=== PATIENT | female | born 1980 | race Caucasian/White ===

== ENCOUNTER 2017-05-16 20:37 | Inpatient (IN) | payer OTHER ==
--- NOTE | 2017-05-16 20:57 | EDPHY ---
H & P Time Seen by Provider: 05/16/17 20:54 HPI/ROS: CHIEF COMPLAINT: bleeding HISTORY OF PRESENT ILLNESS: The patient is a 36-year-old female who was brought in by EMS from home after delivering her baby at home about an hour and half ago with a epic manager. The delivery went well and the baby was healthy. The state that the placenta was delivered intact. Patient however kept bleeding. Her blood pressure dropped. She was given oxytocin and Cytotec by nurse epic manager. EMS was called. The initial pressure was 110 systolic. IV was started and a L of fluids given. On arrival here in the emergency department the patient is pale. Blood pressure 77 systolic quickly dropped to 60 systolic. The baby was in EMS arms, pink, stable vital signs. REVIEW OF SYSTEMS: Unable to obtain secondary to condition EXAM: GENERAL: Pale, severe distress HEAD: Atraumatic, normocephalic. EYES: Pupils equal round and reactive to light, extraocular movements intact, sclera anicteric, conjunctiva are normal. ENT: TMs normal, nares patent, oropharynx clear without exudates. Moist mucous membranes. NECK: Normal range of motion, supple without lymphadenopathy or JVD. LUNGS: Breath sounds clear to auscultation bilaterally and equal. No wheezes rales or rhonchi. HEART: Regular rate and rhythm without murmurs, rubs or gallops. ABDOMEN: Firm contracted uterus, blood in clots in labia BACK: No CVA tenderness, no spinal tenderness, step-offs or deformities EXTREMITIES: Normal range of motion, no pitting or edema. No clubbing or cyanosis. NEUROLOGICAL: Cranial nerves II through XII grossly intact. Normal speech, normal gait. 5/5 strength, normal movement in all extremities, normal sensation PSYCH: Normal mood, normal affect. SKIN: Warm, dry, normal turgor, no visible rashes or lesions. Source: Patient, EMS Exam Limitations: No limitations - Medical/Surgical History Hx Asthma: No Hx Chronic Respiratory Disease: No Hx Diabetes: No Hx Cardiac Disease: No Hx Renal Disease: No Hx Cirrhosis: No Other PMH: CHRONIC ANEMIA ON FERROUS SEQUELS - Family History Significant Family History: No pertinent family hx - Social History Smoking Status: Never smoked Alcohol Use: Sober Drug Use: None Constitutional: Initial Vital Signs Temperature (C) 36 C 05/16/17 21:09 Heart Rate 88 05/16/17 21:09 Respiratory Rate 14 05/16/17 21:09 Blood Pressure 86/50 L 05/16/17 21:09 O2 Sat (%) 98 05/16/17 21:09 Allergies/Adverse Reactions: No Known Allergies Allergy (Unverified 04/15/12 20:29) Home Medications: Medication Instructions Recorded L.acidoph/L.rhamn/B.bif/B.long 1 each PO 04/16/12 [Probiotic Acidophilus Biobeads] Multivitamins [Multivitamin (*)] 1 each PO DAILY 04/16/12 Medical Decision Making ED Course/Re-evaluation: IV fluids were given through pressure bags the patient was taken immediately to the OB floor for Dr. Pandey was waiting. The patient's blood pressure improved to 110/60 with IV fluids. O negative blood was ordered in the ER. Dr. Pandey took over the care on the Ob floor Differential Diagnosis: Partial list of the Differential diagnosis considered include but were not limited to; hemorrhage, retained products and although unlikely based on the history and physical exam, I also considered sepsis, infection. Critical Care Time: Critical care time spent by me, Dr. [place] exclusive with this patient was 10 minutes, exclusive of the PA time exclusive of procedures. The organ system that was at risk was cardiovascular and I gave IV fluids, consultation, and transfusion to prevent worsening of the patient's condition - Data Points Laboratory Results: Laboratory Results 05/16/17 20:55 05/16/17 05/16/17 05/16/17 20:55 20:55 20:53 WBC 20.90 10^3/uL H 10^3/uL (3.80-9.50) RBC 2.02 10^6/uL L 10^6/uL (4.18-5.33) Hgb 6.3 g/dL L g/dL (12.6-16.3) Hct 18.2 % L % (38.0-47.0) MCV 90.1 fL fL (81.5-99.8) MCH 31.2 pg pg (27.9-34.1) MCHC 34.6 g/dL g/dL (32.4-36.7) RDW 13.0 % % (11.5-15.2) Plt Count 158 10^3/uL 10^3/uL (150-400) MPV 10.0 fL fL (8.7-11.7) Neut % (Auto) 82.6 % H % (39.3-74.2) Lymph % (Auto) 8.2 % L % (15.0-45.0) Harmon % (Auto) 8.4 % % (4.5-13.0) Eos % (Auto) 0.0 % L % (0.6-7.6) Baso % (Auto) 0.1 % L % (0.3-1.7) Nucleat RBC Rel Count 0.0 % % (0.0-0.2) Absolute Neuts (auto) 17.26 10^3/uL H 10^3/uL (1.70-6.50) Absolute Lymphs (auto) 1.71 10^3/uL 10^3/uL (1.00-3.00) Absolute Monos (auto) 1.75 10^3/uL H 10^3/uL (0.30-0.80) Absolute Eos (auto) 0.00 10^3/uL L 10^3/uL (0.03-0.40) Absolute Basos (auto) 0.03 10^3/uL 10^3/uL (0.02-0.10) Absolute Nucleated RBC 0.00 10^3/uL 10^3/uL (0-0.01) Immature Gran % 0.7 % % (0.0-1.1) Immature Gran # 0.15 10^3/uL H 10^3/uL (0.00-0.10) Smear Review By Pending Sodium Pending Potassium Pending Chloride Pending Carbon Dioxide Pending Anion Gap Pending BUN Pending Creatinine Pending Estimated GFR Pending Glucose Pending Calcium Pending Total Bilirubin Pending AST Pending ALT Pending Alkaline Phosphatase Pending Total Protein Pending Albumin Pending Patient ABO/Rh Pending Antibody Screen Pending Departure - Departure Disposition: [facility] Inpatient Acute Clinical Impression: hemorrhage of vagina Hypotension Qualifiers: Hypotension type: other hypotension type Qualified Code(s): I95.89 - Other hypotension Condition: Critical
[2017-05-16 21:09] LABS: % IMMATURE GRANULYOCYTES 0.7 % (0.0-1.1); ABSOLUTE IMMATURE GRANULOCYTES 0.15 10^3/uL (0.00-0.10); ADD DIFF? NO; ADD MORPH? YES; ADD SCAN? NO; ATYPICAL LYMPHOCYTE FLAG 10 (0-99); FRAGMENT RBC FLAG 0 (0-99); HEMATOCRIT 18.2 % (38.0-47.0); LEFT SHIFT FLG 10 (0-99); LIPEMIA HEMOLYSIS FLAG 90 (0-99); MEAN CELL HEMOGLOBIN 31.2 pg (27.9-34.1); MEAN CELL HEMOGLOBIN CONCENTR. 34.6 g/dL (32.4-36.7); MEAN CELL VOLUME 90.1 fL (81.5-99.8); PLATELET CLUMPS FLAG 0 (0-99); PLATELET COUNT 158 10^3/uL (150-400); RED BLOOD CELL COUNT 2.02 10^6/uL (4.18-5.33)
[2017-05-16 21:10] LABS: HEMOGLOBIN 6.3 g/dL (12.6-16.3)
[2017-05-16] MEDS ORDERED: ONDANSETRON 4 MG/2 ML VIAL ONE (21:11)
[2017-05-16] MEDS ORDERED: METHYLERGONOVINE MAL 0.2 MG/ML INJ ONE (21:17)
[2017-05-16 21:24] LABS: ALANINE AMINOTRANSFERASE 28 IU/L (9-52); ALBUMIN 1.7 g/dL (3.5-5.0); ALKALINE PHOSPHATASE 41 IU/L (38-126); ANION GAP 3 mEq/L (8-16); ASPARTATE AMINOTRANSFERASE 16 IU/L (14-46); BILIRUBIN,TOTAL 0.2 mg/dL (0.1-1.4); CALCIUM 6.7 mg/dL (8.5-10.4); CARBON DIOXIDE 17 mEq/l (22-31); CHLORIDE 98 mEq/L (97-110); CREATININE 0.5 mg/dL (0.6-1.0); GLOMERULAR FILTRATION RATE > 60; GLUCOSE 91 mg/dL (70-100); POTASSIUM 4.1 mEq/L (3.5-5.2); TOTAL PROTEIN 3.2 g/dL (6.3-8.2)
[2017-05-16 21:35] LABS: SODIUM 118 mEq/L (134-144)
[2017-05-16 22:00] LABS: HEMATOCRIT 20.9 % (38.0-47.0); HEMOGLOBIN 7.3 g/dL (12.6-16.3); MEAN CELL HEMOGLOBIN 30.9 pg (27.9-34.1); MEAN CELL HEMOGLOBIN CONCENTR. 34.9 g/dL (32.4-36.7); MEAN CELL VOLUME 88.6 fL (81.5-99.8); RED BLOOD CELL COUNT 2.36 10^6/uL (4.18-5.33); RED CELL DISTRIBUTION WIDTH 13.2 % (11.5-15.2)
[2017-05-16 22:05] LABS: HYPOCHROMIA 1+; MICROCYTES 1+; PLATELET ESTIMATE ADEQUATE (ADEQ)
[2017-05-16 22:06] LABS: ELLIPTOCYTES 1+
[2017-05-16 22:21] LABS: ALANINE AMINOTRANSFERASE 28 IU/L (9-52); ALBUMIN 2.2 g/dL (3.5-5.0); ALKALINE PHOSPHATASE 54 IU/L (38-126); ANION GAP 5 mEq/L (8-16); ASPARTATE AMINOTRANSFERASE 19 IU/L (14-46); BILIRUBIN,TOTAL 0.4 mg/dL (0.1-1.4); CALCIUM 7.2 mg/dL (8.5-10.4); CARBON DIOXIDE 16 mEq/l (22-31); CHLORIDE 96 mEq/L (97-110); CREATININE 0.5 mg/dL (0.6-1.0); GLOMERULAR FILTRATION RATE > 60; GLUCOSE 100 mg/dL (70-100); POTASSIUM 4.5 mEq/L (3.5-5.2); TOTAL PROTEIN 3.9 g/dL (6.3-8.2)
[2017-05-16 22:26] LABS: SODIUM 117 mEq/L (134-144)
[2017-05-17] MEDS ORDERED: ONDANSETRON 4 MG/2 ML VIAL IVP PRN (00:05)
[2017-05-17] MEDS ORDERED: ONDANSETRON DISINTEGRATING 4 MG TAB PO PRN (00:05)
[2017-05-17] MEDS ORDERED: ACETAMINOPHEN 325 MG TAB PO PRN (00:05)
--- NOTE | 2017-05-17 00:08 | GHP ---
[f rep st] PREOP HISTORY AND PHYSICAL DATE OF ADMISSION: 05/16/2017 HISTORY OF PRESENT ILLNESS: The patient is a 36-year-old now para 2 white female, who had a home with a sole leveling machine operator at 1831 and was having hemorrhage and was brought emergently to the [facility]. The patient's sole leveling machine operator reports that spontaneous onset of labor, progressed naturally , and the patient had rupture of membranes in the afternoon of the . The patient, she reports delivered without problems and then the delivery of the placenta was approximately 10 minutes later. She felt the placenta was intact. The patient received IM Pitocin after the delivery of the placenta and reported slightly heavier bleeding than typical. The patient did have more clots approximately 45 minutes later at which time the sole leveling machine operator reports giving 800 mcg of Cytotec per rectum and with continued clots, the ambulance was called. The patient's blood pressure was very low per the EMS unit and normal saline IV fluids were initiated. In the emergency room, the blood pressure was very low and the patient was tachycardic in the 120s and the patient was brought up to Labor and Delivery. Upon presentation, the blood pressure was 76/ 40 and the patient had received approximately 2800 mL of normal saline. The patient was feeling much improved and the bleeding was decreased. HISTORY: The patient had care with a soft work wrapper layer and examiner with routine labs performed. The patient had delivered at 38+ weeks gestation with an estimated due date of 05/28/2017. The patient's blood type is O-positive. By reports from the soft work wrapper layer and examiner, there was a negative hepatitis B, a nonreactive syphilis test, and rubella immune. These are not actual lab reports but just transcribed into the sole leveling machine operator's records. There was report of labs from December 2016, with a hematocrit of 36%, platelets of 281,000. 1-hour Glucola was normal. GBS was positive. There was an additional record in June 2016, a negative hepatitis C, negative gonorrhea and chlamydia, negative HIV negative. Negative trichomonas and family prep screen. The is a result of IVF through [facility]. There is a note that a genetic testing panel was done at [facility] and was negative. 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 Pena prior to her last and was told that her heart had no residual problems and did not need further followup. The patient reports chronic anemia, needing constant iron replacement in the past. The patient denies any other medical history. PAST OBSTETRIC HISTORY: Vaginally delivered on May 11, 2015, a term infant at 6 pounds 4 ounces. ALLERGIES: The patient is allergic to penicillin. CURRENT MEDICATIONS: Only vitamins and iron. PAST SURGICAL HISTORY: Bilateral inguinal hernias; 1 in 1979 and 1 in 1981. In 2000 breast implants. SOCIAL HISTORY: The patient denies any smoking, alcohol, or drug use. Denies pot intake. The patient is , lives with her and her other child. PHYSICAL EXAM: VITAL SIGNS: Blood pressures on admission to labor and delivery were 120s to 140s over 70s, with initial heart rates 60s to 80s. Saturation in the 90s, temp 37.5. GENERAL: The patient is pale and responsive but quiet describing abdominal discomfort and feeling tired, but feeling much improved after the IV fluids. PELVIC: The patient's bleeding has a small amount of free flow. Ultrasound is performed and there is evidence of a clot in the lower uterine segment. Manual evacuation of approximately 300 cc of clot performed, and the upper canal felt tight and no clots up higher. There was a small amount of placental tissue removed manually. Minimal bleeding following the removal of the clots. Uterine tone felt good at 1 below the umbilicus. EXTREMITIES: Nontender and no edema. LABORATORY DATA: Blood tests were drawn initially on the left arm below the IV site and when the results were retrieved, there was a question about accuracy and they were re-drawn. The initial hemoglobin was 6.3 and hematocrit 18.2, but the initial chemistry showed sodium of 118 with otherwise normal potassium, with creatinine of 0.5, 3.2 protein, calcium 6.7. The metabolic panel and CBC were repeated on the opposite arm where there was no infusion of IV fluids. The repeat at 2155 showed a white count of 16.6, hemoglobin 7.3, hematocrit 20.9. The chemistry repeat showed the sodium of 117, potassium of 4.5. Creatinine is normal at 0.5. Calcium is 7.2. Protein 3.9, albumin 2.2. ASSESSMENT: hemorrhage, status post vaginal delivery with a soft work wrapper layer and examiner at home. The patient is severely anemic. Status post 2800 cc of normal saline, the patient has extremely low sodium levels. 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 hemorrhage is now controlled and the patient is receiving intravenous Pitocin. PLAN: I feel the patient is stable from a bleeding standpoint and the low sodium needs to be addressed and evaluated. I have talked to the hospitalist with the intensive care unit and he is arranging transport to the step-down for further monitoring and evaluation. The patient's bleeding will be continued to be assessed and if the fundus feels firm, then Pitocin does not need to be continued past this IV. /[id number]/MODL MTDD
[2017-05-17 00:29] LABS: ANION GAP 5 mEq/L (8-16); CALCIUM 7.4 mg/dL (8.5-10.4); CARBON DIOXIDE 17 mEq/l (22-31); CHLORIDE 96 mEq/L (97-110); CREATININE 0.5 mg/dL (0.6-1.0); GLOMERULAR FILTRATION RATE > 60; GLUCOSE 98 mg/dL (70-100); POTASSIUM 4.5 mEq/L (3.5-5.2)
[2017-05-17 00:33] LABS: SODIUM 118 mEq/L (134-144)
[2017-05-17] MEDS ORDERED: DESMOPRESSIN ACETATE 4 MCG/ML INJ IVP SCH ×2 (00:37→09:00)
[2017-05-17] MEDS ORDERED: SODIUM Cl 3% 500 ML IV SCH (00:45)
[2017-05-17] MEDS ORDERED: NS 1,000 ML IV SCH (01:30)
[2017-05-17 01:48] LABS: COLOR COLORLESS; LEUKOCYTE ESTERASE,URINE NEGATIVE (NEGATIVE); NITRITE,URINE NEGATIVE (NEGATIVE)
[2017-05-17 02:03] LABS: MUCUS TRACE /lpf (NONE-1+); WBC,URINE NONE SEEN /hpf (0-3)
--- NOTE | 2017-05-17 06:13 | GHP ---
[f rep st] HISTORY AND PHYSICAL DATE OF ADMISSION: 05/17/2017 CHIEF COMPLAINT: Hyponatremia. HISTORY OF PRESENT ILLNESS: This is a 36-year-old female, who tonight delivered a baby at home. Piero barroso then had some bleeding, was brought into the emergency department. She was brought imm ediately to the labor and delivery where she was given Pitocin. Apparently the bleeding has stopped . Her blood pressure was low in the emergency department and she has received almost about 3 L of n ormal saline so far. Routine labs were drawn on the patient and she is found have a sodium of 118. Repeating this, it was 117 and this was after she had received 3 L of normal saline fluid. The patient denies any use of any medications or herbal supplements. She does admit to drinking lar ge amounts of water for her health and the health of the . She states she drinks a quart o f water every 1/2 hour to an hour all day long. She wakes up in the middle of the night and also dr inks water because she is thirsty. When she had IVF it was noted that her sodium was low at that ti me. The patient is not complaining of any headache. She does complain of some tingling in her feet . No focal weakness. She does feel ill in general, mostly fatigue, which she believes is attribute d to the blood loss. REVIEW OF SYSTEMS: A 10-point review of systems was obtained and was otherwise negative. PAST MEDICAL HISTORY: Mild anemia. MEDICATIONS: None. SOCIAL HISTORY: No smoking or alcohol. FAMILY HISTORY: Reviewed noncontributory. PHYSICAL EXAM: VITAL SIGNS: Afebrile, blood pressure is 104/55, heart rate 92, oxygen saturation i s 98% on room air. GENERAL: The patient is well developed, no apparent distress. HEENT: Nonicter ic sclerae. Extraocular muscles intact. Moist mucous membranes. NECK: Supple. No thyromegaly. LUNGS: Good effort. Clear to auscultation bilaterally. CARDIOVASCULAR: Regular rate and rhythm. No murmurs, gallops. ABDOMEN: Positive bowel sounds. Soft, nontender, nondistended. No hepatosp lenomegaly. EXTREMITIES: There is no clubbing, cyanosis. Mild edema. SKIN: Without rash. Warm, intact. NEUROLOGIC: Alert and oriented x3. 5/5 strength in all 4 extremities. PSYCH: Normal moo d and affect. LABORATORY DATA: Sodium is 118, potassium 4.1, creatinine is 0.5, CO2 of 17. Urine sodium was 15. White count, initial blood count showed a white count of 20, hemoglobin 6.3. Repeat showed white c ount of 16 and hemoglobin 7.3. ASSESSMENT: This is a 36-year-old female, presenting with hemorrhage and incidentally fo und to have hyponatremia. PLAN: 1. Hyponatremia. This is most likely secondary to polydipsia. I suppose Selena syndrome is a pos sibility, although I am not sure how quickly that happens after child . At this point, there a re not signs of adrenal insufficiency. I suspect that the patient's sodium has been this low for so me time, as she states that she has been drinking as much water throughout her whole or at least through the later parts of the and in fact, we have sodiums from 2012 and 2011 ther e are in the low 130s. As such, she is a definite risk for rapid correction. Thus, will give DDAVP . I do wonder if her sodium was lower before the 3 L of normal saline that she received. I would a ctually like to keep her pretty close to where she is at right now and maybe with 2-4 mEq correction in the next 6 hours. She is not having significant neurological symptoms, although she does have s ome tingling in her feet. She is alert and oriented. We will start some normal saline at 50 cc an hour and monitor her sodiums every 2 hours. In the morning if we want a little bit more rapid corre ction, could put in a central line and use hypertonic saline. We will contact Nephrology in the ear ly morning. 2. hemorrhage. The patient's hemoglobin is 7.3, which probably would not be an indicati on for transfusion at this point. We will check another hemoglobin in a few hours in the morning. Sixty minutes of critical care time has been spent with this patient. /[id number]/MODL
[2017-05-17 06:21] LABS: % IMMATURE GRANULYOCYTES 0.4 % (0.0-1.1); ABSOLUTE IMMATURE GRANULOCYTES 0.04 10^3/uL (0.00-0.10); ABSOLUTE NRBC COUNT 0.02 10^3/uL (0-0.01); ADD DIFF? NO; ADD MORPH? YES; ADD SCAN? NO; ATYPICAL LYMPHOCYTE FLAG 0 (0-99); FRAGMENT RBC FLAG 0 (0-99); LEFT SHIFT FLG 0 (0-99); LIPEMIA HEMOLYSIS FLAG 90 (0-99); MEAN CELL HEMOGLOBIN 31.2 pg (27.9-34.1); MEAN CELL HEMOGLOBIN CONCENTR. 35.6 g/dL (32.4-36.7); MEAN CELL VOLUME 87.6 fL (81.5-99.8); MEAN PLATELET VOLUME 10.3 fL (8.7-11.7); NRBC-AUTO% 0.2 % (0.0-0.2); PLATELET CLUMPS FLAG 0 (0-99); PLATELET COUNT 173 10^3/uL (150-400); RED BLOOD CELL COUNT 2.02 10^6/uL (4.18-5.33); RED CELL DISTRIBUTION WIDTH 12.9 % (11.5-15.2)
[2017-05-17 06:22] LABS: HEMOGLOBIN 6.3 g/dL (12.6-16.3)
[2017-05-17 06:24] LABS: HEMATOCRIT 17.7 % (38.0-47.0)
[2017-05-17] MEDS ORDERED: ALTEPLASE 2 MG VIAL IVP PRN (07:01)
[2017-05-17 07:05] LABS: ELLIPTOCYTES 1+; PLATELET ESTIMATE ADEQUATE (ADEQ); POLYCHROMASIA 1+; TOXIC GRANULATION PRESENT
[2017-05-17] MEDS ORDERED: SODIUM CL 23.4% 308 MEQ in WATER FOR INJECTION,STERILE 1,000 ML IV SCH (07:30)
[2017-05-17] MEDS ORDERED: IRON PO SCH (09:00)
[2017-05-17] MEDS ORDERED: VITAMIN B COMP W C PO SCH (09:00)
[2017-05-17] MEDS: MULTIVITAMINS 1 EACH TAB PO SCH (09:14)
[2017-05-17] MEDS: IRON PO SCH (09:15)
[2017-05-17] MEDS: VITAMIN B COMP W C PO SCH (09:15)
[2017-05-17 09:17] LABS: SODIUM 120 mEq/L (134-144)
[2017-05-17 09:28] LABS: % SATURATION 10 % (20-55); TOTAL IRON BINDING CAPACITY 313 ug/dL (260-490)
[2017-05-17 09:50] LABS: CORTISOL-AM 21.8 ug/dL (4.5-22.7)
[2017-05-17 09:54] LABS: FERRITIN - BCH 24.4 ng/mL (6.2-264.0)
--- NOTE | 2017-05-17 10:35 | SOAPPROG ---
SOAP Progress Note Assessment/Plan: Assessment:Plan: Hyponatremia-severe -likely represents a mixed disorder -by history she has psychogenic polydipsia -now complicated by , post- hemorrhage, hypotension and fluid resuscitation -urine sodium and urine osmolality both low -prior sodium levels in the low 130's in the remote past -no recent levels to help appreciate severity -need to assume part of her presenting Na of 117 is chronic -currently asymptomatic -need to correct slowly, goal is no more than 8mEq/24 hours -given her history of high fluid intake, drinking 1 quart of fluid every 30- 60 minutes continuously throughout the day, the risk of rapid correction is high -DDAVP given appropriately -I would change the scheduled dosing and just administer a second or third dose if needed -continue Q2 Na levels for now, but likely will be able to change to Q4 -check TSH and cortisol -given that BP levels have improved with IVF it does not look like she has other evidence for Selena's Syndrome at this time, but care needs to be taken to monitor this as the clinical symptoms can take time to develop -she does not need a picline or 3% saline at this time -she was given both oxytocin and misoprostol acutely -animal studies have shown that oxytocin can bind the ADH receptor and cause hyponatremia, but the evidence for this effect in humans is less clear 05/17/17 10:36 Subjective: Hyponatremia hemorrhage Objective: Vital Signs Temp Pulse Resp BP Pulse Ox 36.5 C 97 16 106/65 95 05/17/17 08:00 05/17/17 10:00 05/17/17 10:00 05/17/17 10:00 05/17/17 10:00 Laboratory Results 05/17/17 06:10 05/17/17 08:49 05/16/17 05/17/17 05/18/17 05:59 05:59 05:59 Intake Total 712 Output Total 2250 Balance -1538 Physical Exam - Physical Exam General Appearance: WD/WN, alert, no apparent distress EENT: normal ENT inspection Neck: normal inspection Respiratory: lungs clear, normal breath sounds, No respiratory distress Cardiac/Chest: regular rate, rhythm, No diastolic murmur, No systolic murmur Abdomen: normal bowel sounds, non-tender, No organomegaly Back: Normal inspection Skin: normal color, warm/dry, No cyanosis Extremities: No swelling Neuro/Psych: no motor/sensory deficits, alert, normal mood/affect, oriented x 3 ICD10 Worksheet Patient Problems: Problems Problem Status Onset Hyponatremia with decreased serum osmolality Acute Hypotension Acute hemorrhage of vagina Acute
--- NOTE | 2017-05-17 10:49 | HOSPPROG ---
Hospitalist Progress Note Assessment/Plan: Hyponatremia - Suspect polydipsia given high water intake. There is likely some chronicity. Presenting Na 117. She received DDAVP on admission and Na from 117 to 120. -renal following, appreciate assistance -aiming for Na 125 in first 24 hrs -may require further ddavp or D5W to slow down rate of correction -currently on 2.5 L fluid restriction -TSH and cortisol normal Post- hemorrhage - s/p 3L NS and 1 u prbc's, recheck H&H is stable. -check orthostatics -monitor for chandrika's, normal cortisol reassuring Acute blood loss anemia in setting of chronic anemia - transfusion as above. Iron stores low -cont oral iron Full code Dispo - cont inpt Subjective: Pt feels well. Denies significant vaginal bleeding. Mentating clearly, no confusion, N/V. Objective: Vital Signs Temp Pulse Resp BP Pulse Ox 36.5 C 97 16 106/65 95 05/17/17 08:00 05/17/17 10:00 05/17/17 10:00 05/17/17 10:00 05/17/17 10:00 Laboratory Results 05/17/17 06:10 05/17/17 08:49 05/16/17 05/17/17 05/18/17 05:59 05:59 05:59 Intake Total 712 Output Total 2250 Balance -1538 - Physical Exam Constitutional: no apparent distress Eyes: PERRL Ears, Nose, Mouth, Throat: moist mucous membranes Cardiovascular: regular rate and rhythym Respiratory: no respiratory distress Gastrointestinal: normoactive bowel sounds, soft, non-tender abdomen Skin: warm Musculoskeletal: full muscle strength Neurologic: AAOx3 Psychiatric: interacting appropriately ICD10 Worksheet Patient Problems: Problems Problem Status Onset Hyponatremia with decreased serum osmolality Acute Hypotension Acute hemorrhage of vagina Acute
[2017-05-17 11:07] LABS: HEMATOCRIT 20.3 % (38.0-47.0); HEMOGLOBIN 7.2 g/dL (12.6-16.3)
--- NOTE | 2017-05-17 11:34 | GCON ---
[f rep st] CONSULTATION NEPHROLOGY CONSULTATION DATE OF CONSULTATION: 05/17/2017 REASON FOR ADMISSION: hemorrhage. REASON FOR CONSULTATION: Hyponatremia. ASSESSMENT: 1. Hyponatremia. Severe. This is likely multifactorial. Continue q. 2 hour monitoring of the altagracia li's sodium. Limit oral fluids to 2500 cc/day. 2. Follow response to ddwbhuql-W-dziszqey vasopressin. 3. Check thyroid-stimulating hormone and cortisol. 4. Recheck urine studies at 12 noon. 5. Provide additional intravenous fluid management depending on her rate of correction. 6. Target no more than an 8 mEq increase in sodium per 24 hour period due to the suspected chronici ty of the patient's problem. 7. Transfuse as you are doing. HISTORY: The patient is a 36-year-old female I have been asked to consult on by Dr. Bridgette Nolasco. Piero barroso was admitted last night after experiencing hemorrhage at home while delivering with a marley conley construction area manager there. She was brought to the emergency room after receiving oxytocin and Cytotec by the nurse construction area manager. She was hypotensive with pressures down as low as 60. She was given IV fluid throu gh pressure bags and was taken immediately to the OB floor for care with Dr. Pandey. The patient evidently had already received approximately 2800 cc of fluid. She remained hypotensive and tachycardic. There was evidence of a clot in the lower uterine segment. The amount of bleedin g reported by Dr. Pandey had showed just a small amount of free flow. Manual evacuation of the clot was performed, and a small amount of placental tissue was also removed. Minimal bleeding was seen following removal of the clots and placental tissue. At that point, uterine tone felt good. The agustin pizano received IV Pitocin. The patient was transferred to the ICU to where she is now receiving blo od products. On admission to the emergency room, her sodium level was found to be low at 118. A repeat level con firmed this with a level of 117. The patient states that she has had problems of low sodium levels in the past when she has had illness. It looks like in the remote past in 2011 and 2012, her sodium levels have run between 130 and 133. The patient describes no recent measurements of serum sodium within the last year. She does describe that when she gets dehydrated, her sodium level has been se en to go further. She is not able to tell me when and where both sodium levels have previously been performed. The patient describes drinking 1 quart of fluid every half hour to every hour. She had high fluid i ntake prior to her . She states that she only increased it during her as she was told that to keep healthy, she needed to have urine that looked like water. With this increased fl uid intake, she has been able to do this. Her urine specific gravity was 1.001 on admission. Other past medical history is for an episode of viral myocarditis in 2011. She has chronic anemia o n iron replacement. She has the chronic high fluid intake. She is now a G2, para 2. She delivered her 1st daughter May 11, 2015, at term. The baby was 6 p ounds 4 ounces. She now has delivered her 2nd child at 38+ weeks' gestation. She states she underw ent IVF with Dr. Rawls to achieve this . OUTPATIENT MEDICATIONS: vitamins, iron. As described she received Cytotec and Pitocin in the last 24 hours. SURGICAL HISTORY: Bilateral inguinal hernias in 1979 and in 1981. She had breast implants done in 2000. ALLERGIES: To penicillin. SOCIAL HISTORY: She is a nondrinker and nonsmoker. She denies drug use. She is . She is o [facility] [place]. She lives with her . Her had a recent kidney transplant. REVIEW OF SYSTEMS: Negative except for that included in History of Present Illness. PHYSICAL EXAMINATION: VITAL SIGNS: She is 175.2 cm tall, weighs 76.2 kilos, BMI of 24.8, temp 36.5 . Heart rate has gone down from 101 to 97. Blood pressure 106/65, respirations 16, saturating 95% on room air. In's and out's: She has had a total of 4500 out so far, 3.1 L of urine, and over 1300 estimated blood loss. GENERAL APPEARANCE: No apparent distress. SKIN: Pale. HEENT: Atraumatic, normocephalic. NECK: Unremarkable. HEART: Regular with no extra heart sounds. LUNGS: Clear to auscultation. BACK: Unremarkable. ABDOMEN: Consistent with her state. She has positive bowel sounds. She is slightly ten carlee. EXTREMITIES: Free of edema. SKIN: Free of rashes. NEUROLOGIC: No motor, sensory deficits are noted. LABORATORY DATA: Sodium of 119 at 6:10 this morning. Urine sodium was 15, urine osmolality of 73. ASSESSMENT: Hyponatremia. 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 She may have had a subacute worsening related to the increased fluid intake during . Wi th her hemorrhage, she may have an additional lowering related to her hypotension and hyp ovolemic state. The biggest concern is that she could correct too rapidly. Uxshqxbl-Y-yujeoyki vas opressin has been given by Dr. Nolasco. This is exactly what she needs to make sure that her rate of correction is slow. There are multiple factors that could cause her to come up rapidly. I suspect she will need more njmrculs-H-xnabnvvl vasopressin. She may also need D5 water. We will have a low threshold for giving both. The goal is that she correct no more than 8 mEq in the next 24 hours. F or the time being, we will need to maintain every 2 hour blood draws. She already put out over 3 L of urine. Given the urine osmolality we have seen earlier, this was quite dilute. This could refle ct how quickly the patient could correct if proper management is not undertaken. We will check thyroid-stimulating hormone as well as cortisol. I do not think she has a chronic pro blem with her thyroid or adrenal glands, but we should at least check a baseline study. With postpa rtum hemorrhage, the concern is that she could have or develop a Selena syndrome. At the present t janusz with normalization of her blood pressure with fluid resuscitation, it does not look like that is the case. This can be slow to develop after hemorrhage and, therefore, she will need to be monitored for development of that syndrome. At the present time, she is receiving IV fluids in the form of blood. She has some normal saline ru nning with that. She is eating and drinking. The nurse will be calling me with results of her bloo d test. /[id number]/MODL
--- NOTE | 2017-05-17 12:18 | OBPP ---
Progress Note Assessment/Plan: Assessment: 1) s/p at home with PPH PPD # 1 - pt is stable 2) Anemia - pt is asymptomatic, s/p transfusion 3) Hyponatremia Plan: Continue routine pp care Obstetrically stable at this time s/p IM Pitocin and 800 mcg Cytotec as well as IV Pitocin with uterine fundus firm below umbilicus Continue to breast feed and pump while on diet restriction to help with milk supply To correct sodium deficiency slowly, followed in ICU 05/17/17 12:22 Subjective: Pt seen and examined. Feeling much better, she just showered. She is OOB and feels less lightheaded or dizziness. Voiding without difficulty and passing flatus. No BM. Moderate lochia. Denies any f/c/n/v/CP or SOB. BF well so far, also pumping. Objective: 05/17/17 10:59 Patient ABO/Rh O POSITIVE 05/16/17 20:53 Total Bilirubin 0.4 mg/dL (0.1-1.4) D 05/16/17 21:55 AST 19 IU/L (14-46) 05/16/17 21:55 ALT 28 IU/L (9-52) 05/16/17 21:55 Temp Pulse Resp BP Pulse Ox 36.5 C 97 16 106/65 95 05/17/17 08:00 05/17/17 10:00 05/17/17 10:00 05/17/17 10:00 05/17/17 10:00 Uterine Position/Fundal Height: Umbilicus -2 Uterine Tone: Firm Physical Exam - Physical Exam General Appearance: WD/WN, alert, no apparent distress Respiratory: lungs clear, normal breath sounds Cardiac/Chest: regular rate, rhythm Abdomen: normal bowel sounds, non-tender, soft, flatus (+) Extremities: non-tender, normal inspection Skin: warm/dry, other (pale) Neuro/Psych: alert, normal mood/affect, oriented x 3
[2017-05-17] MEDS: D5W 1,000 ML IV SCH (18:48)
[2017-05-17] MEDS ORDERED: DESMOPRESSIN ACETATE 4 MCG/ML INJ IVP ONE (22:47)
--- NOTE | 2017-05-17 22:56 | SOAPPROG ---
SOAP Progress Note Assessment/Plan: Assessment:Plan: Hyponatremia-Na up from 125 to 129 over the last four hours in spite of starting D5W at 100/hour -will give DDAVP 1 mcg IVP x 1 to help slow rate of correction -continue D5W -continue labs Q4 -I would like to keep the Na level 129-130 overnite -will need to increase D5W rate if Na goes>130 -discussed with RN -they will call if Na > 130 so Rx can be adjusted 05/17/17 22:56 Objective: Vital Signs Temp Pulse Resp BP Pulse Ox 36.5 C 105 H 20 114/62 95 05/17/17 08:00 05/17/17 16:00 05/17/17 16:00 05/17/17 16:00 05/17/17 10:00 Laboratory Results 05/17/17 10:59 05/17/17 22:15 05/16/17 05/17/17 05/18/17 05:59 05:59 05:59 Intake Total 539 344 Output Total 7582 3042 Balance -1538 -1766 ICD10 Worksheet Patient Problems: Problems Problem Status Onset Hyponatremia with decreased serum osmolality Acute Hypotension Acute hemorrhage of vagina Acute
[2017-05-18 00:33] VITALS: O2SAT 96
[2017-05-18 06:36] LABS: ALBUMIN 2.2 g/dL (3.5-5.0); ANION GAP 3 mEq/L (8-16); CARBON DIOXIDE 21 mEq/l (22-31); CHLORIDE 102 mEq/L (97-110); CREATININE 0.6 mg/dL (0.6-1.0); GLOMERULAR FILTRATION RATE > 60; GLUCOSE 93 mg/dL (70-100); MAGNESIUM 1.7 mg/dL (1.6-2.3); POTASSIUM 4.2 mEq/L (3.5-5.2); SODIUM 126 mEq/L (134-144)
[2017-05-18] MEDS: D5W 1,000 ML IV SCH (07:02)
[2017-05-18 08:21] VITALS: BP 109/59; PULSE 101; RESP 25; TEMP 98.1
[2017-05-18] MEDS: MULTIVITAMINS 1 EACH TAB PO SCH (09:03)
[2017-05-18] MEDS: VITAMIN B COMP W C PO SCH (09:04)
[2017-05-18] MEDS: IRON PO SCH (09:04)
--- NOTE | 2017-05-18 09:37 | SOAPPROG ---
SOTRAY Progress Note Assessment/Plan: Assessment:Plan: Hyponatremia-Na wasup from 125 to 129 over the last four hours in spite of starting D5W at 100/hour -was given DDAVP 1 mcg IVP x 1 to help slow rate of correction -Na came down to 127, then further down to 126 with ongoing D5W -patient evidently started drinking more that the allotted amount when she heard her sodium level and gone up to 129 -her oral intake does not appear to be fully recorded, but it sounds like she exceeded the 2500ml limit -D5W now stopped -DDAVP should be wearing off -stop Q4 labs -next Na level at 1pm -she can be discharged after this lab is reviewed and her sodium level is responding as expected -she understands that she should not push extra fluids at this time -I would limit her at home to 4 liters per day initially -Na levels tomorrow and next week -as her breast milk comes in and her baby eats more she may need to be allowed to increase her fluid intake 05/18/17 09:33 Subjective: stable overnite Objective: Vital Signs Temp Pulse Resp BP Pulse Ox 36.7 C 101 H 25 H 109/59 L 96 05/18/17 08:18 05/18/17 08:18 05/18/17 08:18 05/18/17 08:18 05/18/17 00:00 Laboratory Results 05/17/17 10:59 05/18/17 06:15 05/17/17 05/18/17 05/19/17 05:59 05:59 05:59 Intake Total 712 2134 Output Total 2250 1001 Balance -1538 -366 Physical Exam - Physical Exam General Appearance: WD/WN, alert, no apparent distress EENT: normal ENT inspection Neck: normal inspection Respiratory: lungs clear, normal breath sounds, No respiratory distress Cardiac/Chest: regular rate, rhythm, No diastolic murmur, No systolic murmur Abdomen: normal bowel sounds, non-tender, soft, No hepatomegaly Skin: normal color, warm/dry, No cyanosis Extremities: No swelling Neuro/Psych: no motor/sensory deficits, alert, normal mood/affect, oriented x 3 ICD10 Worksheet Patient Problems: Problems Problem Status Onset Hyponatremia with decreased serum osmolality Acute Hypotension Acute hemorrhage of vagina Acute
[2017-05-18] MEDS ORDERED: METHYLERGONOVINE MAL 0.2 MG/ML INJ IM ONE (10:00)
--- NOTE | 2017-05-18 13:49 | SOAPPROG ---
SOAP Progress Note Assessment/Plan: Assessment:Plan: Hyponatremia-Na at 1pm = 128. Given increase and prior response to therapy, I think she can safely go home with this level. She should get a sodium level tomorrow. I gave her an order slip earlier in the day for a Sodium level weekly starting tomorrow. We will see what her level is again tomorrow, then decide if she needs any ongoing monitoring. Fluid and nutrition guidelines have previously been discussed in detail. 05/18/17 13:46 Objective: Vital Signs Temp Pulse Resp BP Pulse Ox 36.7 C 101 H 25 H 109/59 L 96 05/18/17 08:18 05/18/17 08:18 05/18/17 08:18 05/18/17 08:18 05/18/17 00:00 Laboratory Results 05/17/17 10:59 05/18/17 13:00 05/17/17 05/18/17 05/19/17 05:59 05:59 05:59 Intake Total 712 2134 Output Total 2252 2500 Balance -1538 -366 ICD10 Worksheet Patient Problems: Problems Problem Status Onset Hyponatremia with decreased serum osmolality Acute Hypotension Acute hemorrhage of vagina Acute
--- NOTE | 2017-05-19 16:40 | GDS ---
[f rep st] DISCHARGE SUMMARY DISCHARGE DIAGNOSES: 1. Hyponatremia secondary to psychogenic polydipsia, improved. 2. hemorrhage status post 1 unit of packed red blood cells. 3. Acute blood loss anemia in the setting of chronic anemia, transfusion as above. TALENT ACQUISITION SPECIALIST: Nick Fragoso MD HISTORY: For details please see the history and physical dated May 17, 2017. In brief, the patient is a 36-year-old 2, now para 2, who presented to the emergency departm ent after a home with hemorrhage. She was initially managed by the obstetric servi ce, received Pitocin and Cytotec with removal of some placental tissue and her bleeding resolved. H owever, labs revealed a very low sodium level of 117 and she was admitted to the medicine service fo r further management. HOSPITAL COURSE: Patient admitted to the intensive care unit for frequent monitoring of her hyponat remia. She received DDAVP on admission to prevent rapid over-correction. She appropriately correct ed her sodium level from 118-128 over 40 hours. Her symptoms have greatly improved. She wishes to go home and spend time with her baby. The plan is for her to have a follow-up sodium level checked tomorrow with results to Dr. Fragoso with [facility]. She will have weekly sodium le vels after that. She is instructed to decrease her fluid intake to no more than 4 L per day. Prior to arrival she was drinking a quart of water every 30-60 minutes. DISPOSITION: Patient is discharged home in stable condition. FOLLOWUP: 1. Primary care. 2. RESTAURANT ASSISTANT MANAGER. 3. Dr. Yasmani Fragoso, nephrology. 4. Sodium level tomorrow and weekly thereafter with results to [facility]. DISCHARGE MEDICATIONS: Please see [facility] for completed outpatient medication list. There are no new medications on discharge. /[id number]/MODL
--- NOTE | 2017-05-20 10:36 | ASDISCHSUM ---
Discharge Information Plan Status:Home with No Needs Medically Cleared to Leave: Discharge Date:05/18/2017 02:20 PM CM D/C Disposition:Home, Routine, Self-Care ADT D/C Disposition:Home, Routine, Self-Care Projected Discharge Date:05/18/2017 02:20 PM Transportation at D/C:Family Discharge Delay Reason: Follow-Up Date:05/18/2017 02:20 PM Discharge Slot: Final Diagnosis: Placement Information Patient Contact Information Contact Name:CLAIRE Relationship: Address: City: [facility] [place] Phone: [facility] Code: Email: Financial Information Financial Class:[employer] Primary Plan Desc:[employer] OPEN ACC LOCAL Primary Plan Number:[id number] Secondary Plan Desc: Secondary Plan Number: Assessment Information Intervention Information
== END 2017-05-18 14:20 | disposition home or self-care (01) | DRG 774 ==
LOC: EDUNIT# → FLD 20:59 → F2N 23:11 → OBSVTOIN 05-17 00:05
PROVIDERS: ADMIT Obstetrics & Gynecology; ATTEND Obstetrics & Gynecology
PROC: 3E033VJ Introduction of Other Hormone into Peripheral Vein, Percutaneous Approach (ICD-10-PCS; principal; 2017-05-17)
PROC: 30233N1 Transfusion of Nonautologous Red Blood Cells into Peripheral Vein, Percutaneous Approach (ICD-10-PCS; principal; 2017-05-17)
DX: O72.1 Other immediate postpartum hemorrhage (principal); O99.285 Endocrine, nutritional and metabolic diseases complicating the puerperium; F54 Psychological and behavioral factors associated with disorders or diseases classified elsewhere; E87.1 Hypo-osmolality and hyponatremia; R63.1 Polydipsia; O90.81 Anemia of the puerperium; D62 Acute posthemorrhagic anemia; D50.9 Iron deficiency anemia, unspecified
CPT/HCPCS: J2210; J2405; J2597; P9016